=== PATIENT | female | born 1975 | race Caucasian/White ===

== ENCOUNTER 2019-05-19 17:01 | Emergency (ER) | payer OTHER ==
[2019-05-19 17:19] VITALS: BP 124/65; PULSE 109; TEMP 98.5; BMI 28.7
--- NOTE | 2019-05-19 17:22 | PDOC ---
Rapid Medical Evaluation Chief Complaint: ,Possible Time Seen by Provider: 05/19/19 17:14 Medical Evaluation: Allergies Allergy/AdvReac Type Severity Reaction Status Date / Time No Known Allergies Allergy Verified 05/19/19 17:15 Vital Signs Temp Pulse Resp BP Pulse Ox 98.5 F 109 H 18 124/65 96 05/19/19 17:16 05/19/19 17:16 05/19/19 17:16 05/19/19 17:16 05/19/19 17:16 05/19/19 17:20 I have performed a brief in-person evaluation of this patient. The patient presents with a chief complaint of:, currently but not sure how far as h/o irreg menses, no IUP on US 2 weeks ago, sent in by clinic for f/u US today. No vag bleed, abd pain, n/v/f/c Pertinent physical exam findings:stable and well dale I have ordered the following:labs/US The patient will proceed to the ED for further evaluation. Discharge Disposition - Diagnosis Ultrasound scan abnormal - Referrals - Patient Instructions - Post Discharge Activity
--- NOTE | 2019-05-19 18:12 | PDOC ---
History of Present Illness - General Chief Complaint: ,Possible Stated Complaint: 12 WKS /SENT BY PCP Time Seen by Provider: 05/19/19 17:14 - History of Present Illness Initial Comments: 05/19/19 18:11 CHIEF COMPLAINT: concern, sent by PCP HISTORY OF PRESENT ILLNESS: Antonio Mejia. LMP: february 03. . Patient states she had a positive test April 25, but when she went to get an ultrasound on the 28 of April, there was no baby. She states she had blood work done yesterday at [facility] and was called today to say her "levels were too high" and she needed to to the ER immediately. Patient reports nausea and vomiting, 3 times daily, denies fever, chills, diarrhea. Patient reports weakness. Denies abdominal pain but reports distention and that "sometimes it feels so full like it's going to explode." Patient states she bled from March 26 up to two weeks ago, and then she went t othe bathroom and it suddenly stopped. Denies SOB, chest pain. No recent travel or sick contacts. PAST MEDICAL HISTORY: Denies past medical history FAMILY HISTORY: Denies SOCIAL HISTORY: Denies tobacco, alcohol, illicit drug use. SURGICAL HISTORY: Denies ALLERGIES: No known drug allergies REVIEW OF SYSTEMS General/Constitutional: Denies fever or chills. Denies weakness, weight change. HEENT: Denies change in vision. Denies ear pain or discharge. Denies sore throat. Cardiovascular: Denies chest pain or shortness of breath. Respiratory: Denies cough, wheezing, or hemoptysis. Gastrointestinal: Denies nausea, vomiting, diarrhea or constipation. Denies rectal bleeding. Genitourinary: Denies dysuria, frequency, or change in urination. Musculoskeletal: Denies joint or muscle swelling or pain. Denies neck or back pain. Skin and breasts: Denies rash or easy bruising. Neurologic: Denies headache, vertigo, loss of consciousness, or loss of sensation. Psychiatric: Denies depression or anxiety. Endocrine: Denies increased thirst. Denies abnormal weight change. Hematologic/Lymphatic: Denies anemia, easy bleeding, or history of blood clots. Allergic/Immunologic: Denies hives or skin allergy. Denies latex allergy. PHYSICAL EXAM General Appearance: Well-appearing, appropriately dressed. No apparent distress , no intoxication. HEENT: EOMI, PERRLA, normal ENT inspection, normal voice, TMs normal, pharynx normal. No conjunctival pallor. No photophobia, scleral icterus. Neck: Supple. Trachea midline. No tenderness, rigidity, carotid bruit, stridor , lymphadenopathy, or thyromegaly. Respiratory/Chest: Lungs CTAB. No shortness of breath, chest tenderness, respiratory distress, accessory muscle use. No crackles, rales, rhonchi, stridor , wheezing, dullness Cardiovascular: RRR. S1, S2. No JVD, murmur, bradycardia, tachycardia. Vascular Pulses: Dorsalis-Pedis (R): 2+, Dorsalis-Pedis (L): 2+ Gastrointestinal/Abdominal: Normal bowel sounds. Abdomen soft, non-distended. No tenderness or rebound tenderness. No organomegaly, pulsatile mass, guarding , hernia, hepatomegaly, splenomegaly. Lymphatic: No adenopathy, tenderness. Musculoskeletal/Extremities: Normal inspection. FROM of all extremities, normal capillary refill. Pelvis Stable. No CVA tenderness. No tenderness to extremities, pedal edema, swelling, erythema or deformity. Integumentary: Appropriate color, dry, warm. 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 Fully oriented, alert. Appropriate mood/affect. Motor strength 5/5. No appreciable EOM palsy, facial droop or sensory deficit. 05/19/19 18:12 05/19/19 18:21 Past History - Past Medical History Allergies/Adverse Reactions: Allergies Allergy/AdvReac Type Severity Reaction Status Date / Time No Known Allergies Allergy Verified 05/19/19 17:15 COPD: No - Immunization History Immunization Up to Date: Yes - Suicide/Smoking/Psychosocial Hx Smoking History: Never smoked Hx Alcohol Use: No Drug/Substance Use Hx: No *Physical Exam - Vital Signs Last Vital Signs Temp Pulse Resp BP Pulse Ox 98.5 F 109 H 18 124/65 96 05/19/19 17:16 05/19/19 17:16 05/19/19 17:16 05/19/19 17:16 05/19/19 17:16 ED Treatment Course - LABORATORY CBC & Chemistry Diagram: 05/19/19 18:46 05/19/19 18:46 *DC/Admit/Observation/Transfer Diagnosis at time of Disposition: Molar - Discharge Dispostion Disposition: HOME Decision to Admit order: No - Referrals Referrals: Connie Patton [Primary Care Provider] - Selam Jean MD [Staff Physician] - - Patient Instructions Additional Instructions: You have been diagnosed with what is called a molar . You will need surgery for treatment. The surgical team has your information and will call you this weekend to inform you of what time you need to return to the hospital on WEDNESDAY. If you develop any new or worsening symptoms, please return to the ER immediately. - Post Discharge Activity
[2019-05-19 19:27] LABS: BASO % 0.4 % (0-2.0); EOS % 0.5 % (0-4.5); HEMATOCRIT 32.5 % (32.4-45.2); HEMOGLOBIN 11.1 GM/dL (10.7-15.3); LYMPH % 22.6 % (8-40); MCH 32.5 pg (25.7-33.7); MCHC 34.1 g/dl (32.0-36.0); MEAN CELL VOLUME 95.6 fl (80-96); MONO % 8.6 % (3.8-10.2); NEUT % 67.9 % (42.8-82.8); PLATELET COUNT 144 K/MM3 (134-434); RDW 14.1 % (11.6-15.6); WHITE BLOOD COUNT 6.9 K/mm3 (4.0-10.0)
--- NOTE | 2019-05-19 19:30 | PDOC ---
*Physical Exam - Vital Signs Last Vital Signs Temp Pulse Resp BP Pulse Ox 98.5 F 109 H 18 124/65 96 05/19/19 17:16 05/19/19 17:16 05/19/19 17:16 05/19/19 17:16 05/19/19 17:16 ED Treatment Course - LABORATORY CBC & Chemistry Diagram: 05/19/19 18:46 05/19/19 18:46 Medical Decision Making - Medical Decision Making 05/19/19 19:29 Pt seen by the Advanced Practice Provider under my direct supervision Ancillary studies reviewed I agree with plan as outlined by the Advanced Practice Provider TONY Hansen 05/19/19 23:40 ultrasound with molar . Dr. Jean here in ED evaluating the patient. States that she will schedule a patient as an outpatient for surgery. *DC/Admit/Observation/Transfer Diagnosis at time of Disposition: Molar - Discharge Dispostion Disposition: HOME - Referrals Referrals: Selam Jean MD [Staff Physician] - Connie Patton [Primary Care Provider] - - Patient Instructions Additional Instructions: You have been diagnosed with what is called a molar . You will need surgery for treatment. The surgical team has your information and will call you this weekend to inform you of what time you need to return to the hospital on WEDNESDAY. If you develop any new or worsening symptoms, please return to the ER immediately. - Post Discharge Activity
[2019-05-19 21:11] LABS: EPI CELLS 7.1 /HPF (0-5/HPF); HYALINE CASTS 8 /lpf (0-8); PH,URINE 5.5 (5.0-8.0); URINE APPEARANCE CLEAR; URINE BACTERIA 158.5 /hpf (NEGATIVE); URINE BILIRUBIN NEGATIVE (NEGATIVE); URINE COLOR YELLOW; URINE GLUCOSE (UA) NEGATIVE (NEGATIVE); URINE KETONE TRACE (NEGATIVE); URINE LEUK ESTERASE NEGATIVE (NEGATIVE); URINE NITRITE NEGATIVE (NEGATIVE); URINE PROTEIN TRACE (NEGATIVE); URINE RBC 10 /hpf (0-4); URINE UROBILINOGEN 0.2 mg/dL (0.2-1.0); URINE WBC 2 /hpf (0-5)
[2019-05-19 21:50] LABS: ALBUMIN 2.8 g/dl (3.4-5.0); ALK PHOS 64 U/L (45-117); ANION GAP 7 MMOL/L (8-16); BILIRUBIN,TOTAL 0.3 mg/dL (0.2-1); BLOOD UREA NITROGEN 15.3 mg/dL (7-18); CALCIUM 8.6 mg/dL (8.5-10.1); CHLORIDE 108 mmol/L (98-107); CO2 24 mmol/L (21-32); CREATININE 0.4 mg/dL (0.55-1.3); GLUCOSE,RANDOM 84 mg/dL (74-106); POTASSIUM 3.7 mmol/L (3.5-5.1); SGOT/AST 25 U/L (15-37); SGPT/ALT 30 U/L (13-61); SODIUM 139 mmol/L (136-145); TOT PROT 6.3 g/dl (6.4-8.2)
== END 2019-05-20 00:15 | disposition home or self-care (01) ==
LOC: JER 17:01
DX: O26.899 Other specified pregnancy related conditions, unspecified trimester (principal); O02.0 Blighted ovum and nonhydatidiform mole; Z3A.00 Weeks of gestation of pregnancy not specified
CPT/HCPCS: 36415; 76817-TC; 80053; 81003; 84702; 84703; 85025; 86850; 86900; 86901; 99282-25

== ENCOUNTER 2019-05-24 04:51 | Day surgery (SDC) | payer OTHER ==
[2019-05-23 17:44] VITALS: BMI 28.3
[2019-05-24] MEDS ORDERED: DOXYCYCLINE INJECTION 100 MG in DEXTROSE 5%-WATER - 100 ML IVPB ONE (09:57)
[2019-05-24] MEDS ORDERED: OXYTOCIN 20 UNITS in 0.9% NS 20 UNIT/1,000 ML INFUS.BAG IV SCH (10:30)
[2019-05-24] MEDS ORDERED: METHYLERGONOVINE MALEATE 0.2 MG/1 ML AMP IM ONE (12:20)
--- NOTE | 2019-05-24 12:43 | HP ---
History & Physical Update - Physical Physical: No Change - Assessment Assessment: No Change - Plan Plan: No Change (Risk, complications and follow up discussed with patient once again. All questions answered and informed consent obtained)
[2019-05-24] MEDS ORDERED: MIDAZOLAM HCL 2 MG/2 ML SINGLE DOSE VIAL ONE (13:01)
[2019-05-24] MEDS ORDERED: DOXYCYCLINE HYCLATE 100 MG VIAL IVPB ONE (13:06)
[2019-05-24] MEDS ORDERED: DEXAMETHASONE SOD PHOSPHATE 4 MG/1 ML VIAL ONE (13:27)
[2019-05-24] MEDS ORDERED: ONDANSETRON 4 MG/2 ML VIAL IVPUSH PRN (13:54)
[2019-05-24] MEDS ORDERED: oxyCODONE HCL 5 MG TABLET PO PRN (13:54)
[2019-05-24] MEDS ORDERED: LACTATED RINGERS SOLUTION 1,000 ML IV SCH (14:00)
--- NOTE | 2019-05-24 14:05 | OP ---
Operative Note - Note: Operative Date: 05/24/19 Pre-Operative Diagnosis: molar Operation: Suction D&C Findings: copious amount of POC, no parts Implants: none Post-Operative Diagnosis: Same as Pre-op Surgeon: Antonio Corea (#[id number]) Anesthesia: Spinal Specimens Removed: POC Estimated Blood Loss (mls): 100 Operative Report Dictated: Yes
--- NOTE | 2019-05-24 14:22 | DS ---
Physical Examination Vital Signs: Vital Signs Temperature 98.5 F 05/24/19 12:28 Pulse Rate 93 H 05/24/19 12:28 Respiratory Rate 16 05/24/19 12:28 Blood Pressure 132/84 05/24/19 12:28 O2 Sat by Pulse Oximetry (%) 99 05/24/19 12:28 Findings/Remarks: post-op Constitutional: Yes: No Distress, Calm HENT: Yes: Atraumatic Cardiovascular: Yes: Regular Rate and Rhythm Respiratory: Yes: Regular Gastrointestinal: Yes: Normal Bowel Sounds Breast(s): Yes: Other (deferred) Extremities: Yes: WNL Edema: No Integumentary: Yes: WNL Wound/Incision: Yes: Well Approximated Neurological: Yes: Alert, Oriented ...Motor Strength: WNL Psychiatric: Yes: Alert, Oriented Discharge Summary Reason For Visit: MOLAR as noted Procedures: Principal: Suction D&C Hospital Course: uncomplicated outpatient surgery Condition: Stable - Instructions Diet, Activity, Other Instructions: regular diet, nothing per vagina until seen by doctor. Please call MD if fever, sever vaginal bleeding, purulent vaginal discharge, inability to tolerate oral food. Please have blood drawn at health center in 2 days and follow up in a week with MD Referrals: Antonio Corea MD [Staff Physician] - - Home Medications Comprehensive Discharge Medication List: Ambulatory Orders NK [No Known Home Medication] 05/23/19
[2019-05-24] MEDS ORDERED: ONDANSETRON 4 MG/2 ML VIAL ONE (14:52)
[2019-05-24] MEDS ORDERED: ONDANSETRON 4 MG/2 ML VIAL IVPUSH ONE (14:58)
[2019-05-24 18:59] VITALS: BP 135/83; PULSE 107; TEMP 98.7
--- NOTE | 2019-05-25 09:11 | OP ---
DATE OF OPERATION: 05/24/2019 DICTATING ATTENDING: River Corea MD PREOPERATIVE DIAGNOSIS: This is a 43-year-old female with molar , uterine size approximately 17 weeks. POSTOPERATIVE DIAGNOSIS: This is a 43-year-old female with molar , uterine size approximately 17 weeks. PROCEDURE: Suction dilatation and curettage. SURGEON: River Corea MD CERTIFIED PHYSICAL THERAPIST ASSISTANT: None. ANESTHESIA: Spinal. INTRAVENOUS FLUIDS: Per Anesthesia, intraoperative doxycycline, Pitocin, Methergine administered. ESTIMATED BLOOD LOSS: 100 mL. URINE: None. COMPLICATIONS: None. FINDINGS: Uterine size consistent with 17 weeks, normal external genitalia vaginal mucosa. Cervix was patulous, consistent with multiparity. No. 12 curved cannula advanced to the fundus without difficulty. Copious amount of clear fluid, tissue, blood noted in suction tubing. No clear parts noted. At the conclusion of the procedure, no active bleeding from the cervix. DESCRIPTION OF PROCEDURE: The patient was taken to the operating room where anesthesia was found to be adequate. She was then prepped and draped in a normal sterile fashion. Appropriate time-out took place. Bryan retractors were utilized to visualize the cervix, which anterior aspect was grasped with atraumatic tenaculum. The cervix was already dilated and patulous. A No. 12 curved cannula was advanced through to the fundus without difficulty and suction activated. Copious amount of clear fluid, blood, and products of conception noted in the tubing. Systematic suction curettage of the endometrial cavity took place. The cannula was retrieved and a passage with a smooth curette took place. Gritty texture was noted on the posterior and lateral stallings of the uterus. Suction curettage was introduced without difficulty, and once again , systematic curetting took place. A second passage with the smooth curette anteriorly performed until a gritty texture was noted. Suction curettage then continued. A gritty texture was noted throughout the entire intrauterine cavity. No active bleeding, no additional tissues noted on the tubing. Small amount of blood and bubbles was noted. Procedure concluded, and all instruments were retrieved from the vagina. No active bleeding noticed from the cervical os and the tenaculum site. Patient tolerated the procedure well and was brought to the recovery room in stable condition. Instrument count was reported as correct x2 by the staff. RIVER COERA MD [id number] MTDD
== END 2019-05-24 19:00 | disposition home or self-care (01) ==
LOC: JASU-SURG 04:51
PROVIDERS: ATTEND Student in an Organized Health Care Education/Training Program
PROC: 0UDB7ZZ Extraction of Endometrium, Via Natural or Artificial Opening (ICD-10-PCS; principal; 2019-05-24 12:30)
DX: O02.0 Blighted ovum and nonhydatidiform mole (principal)
CPT/HCPCS: 84703; 88305-TC; 94760